=== PATIENT | male | born 1955 ===

== ENCOUNTER 2020-02-21 18:12 | Outpatient (REF) | payer MEDICAID, SELFPAY ==
[2020-02-21 21:30] LABS: Abs Immature Grans 0.02 10^3/uL (0.0-0.06); Absolute Basophil Count 0.05 10^3/uL (0.0-0.2); Absolute Eosinophil Count 0.11 10^3/uL (0.0-0.7); Absolute Monocyte Count 0.73 10^3/uL (0.1-0.8); Absolute Neutrophil Count 4.97 10^3/uL (1.2-6.7); Basophils % 0.7; Eosinophils % 1.6; HCT 50.6 % (40.0-50.0); HGB 17.8 g/dL (13.5-17.5); Immature Grans % 0.3; Lymphocytes % 16.9; MCH 35.3 pg (27.0-33.0); MCHC 35.2 % (32.0-36.0); MCV 100.4 fL (80-95); MPV 10.1 fL (8.0-11.0); Monocytes % 10.3; Neutrophils % 70.2; Nucleated RBC 0 %; Platelet Count 222 10^3/uL (130-400); RBC 5.04 10^6/uL (4.36-5.78); RDW 11.9 % (11.8-14.1); RDW-SD 44.9 fL; WBC 7.08 10^3/uL (4.4-10.8)
[2020-02-21 21:59] LABS: ALT 37 U/L (16-63); AST 27 U/L (15-37); Albumin 4.1 g/dL (3.4-5.0); Alkaline Phosphatase 100 U/L (46-116); Anion Gap 6.5 mmol/L (3-11); BUN 4 mg/dL (7-18); Bilirubin, Total 0.6 mg/dL (0.2-1.0); CO2 28.5 mmol/L (21.0-32.0); CREATININE 0.72 mg/dL (0.70-1.30); Calcium 8.8 mg/dL (8.5-10.1); Calculated LDL 97 mg/dL (<100); Chloride 95 mmol/L (98-107); Cholesterol 191 mg/dL (<200); Glucose 107 mg/dL (74-106); HDL Cholesterol 53 mg/dL (40-60); Potassium 4.5 mmol/L (3.5-5.1); Sodium 130 mmol/L (136-145); Total Protein 6.8 g/dL (6.4-8.2); Triglyceride 205 mg/dL (<150)
[2020-02-21 22:56] LABS: Lipase 95 U/L (73-393)
== END 2020-02-21 18:32 ==
LOC: NCHCN 18:12
PROVIDERS: PCP Nurse Practitioner Family; Visit Provider Nurse Practitioner Family
DX: I10 Essential (primary) hypertension (principal); K92.1 Melena; R19.7 Diarrhea, unspecified; F17.200 Nicotine dependence, unspecified, uncomplicated; M54.89 Other dorsalgia
CPT/HCPCS: 80053; 80061; 83690; 85025

== ENCOUNTER 2020-03-12 01:32 | Outpatient (CLI) | payer MEDICAID, SELFPAY ==
--- NOTE | 2020-03-12 | DI.CTLCSR_ITS ---
EXAM: CT CHEST LUNG CANCER SCREEN CLINICAL HISTORY: SCREENING FOR LUNG CA, CURRENT SMOKER, F17.200, RML PULMONARY NODULE, R91.1 TECHNIQUE: Imaging Protocol: Axial computed tomography images with coronal and sagittal reformatted images were created and reviewed COMPARISON: No exams were available for comparison FINDINGS: Tracheobronchial tree: Patent where visualized. Mediastinum and C[place]: No dominant adenopathy or fluid collection. Pulmonary parenchyma: No consolidation or dominant measurable mass. Mild to moderate centrilobular em physema greater in the upper lobes. Lung Nodules: Few tiny calcifications posterior right lower lobe. No noncalcified nodules. Pleura: No effusion or pneumothorax. Heart: The heart is not dilated. Moderate coronary artery calcifications are seen. Aorta: Thoracic aorta non-dilated. Moderate atherosclerotic changes. Upper abdomen: Cyst left kidney. Bones: Mild degenerative disc changes. Soft Tissues: Unremarkable. IMPRESSION: [id number] centrilobular emphysema. No suspicious pulmonary nodules. Category Lung RADS Cat 1 - Negative: No nodules and definitely benign nodules Lung-RADS 1.0 CATEGORIES: Category 0 - Prior chest CT exam(s) being located for comparison. Category 1 - Annual screening in 12 months. No nodules or definitely benign nodules. Category 2 - Annual screening in 12 months. Benign appearance. Nodules with low likelihood of becomin g active cancer. Category 3 - 6-month follow-up. Probably benign. Short-term follow-up suggested. Nodules with low lik elihood of becoming active cancer. Category 4A - 3-month follow-up and CT/PET if >8 mm in size. Suspicious finding. Findings which requi re additional testing. Category 4B - Findings which require additional testing and tissue sampling. Suspicious finding. C Added to Any of the Above - History of prior lung cancer screening. S Added to Any of the Above - Significant unexpected other finding. RADIATION DOSE DELIVERED: 85.54mGy.cm Total DLP DATA REPOSITORY: All CT scans at this facility are submitted to the National Radiology Data Registry (NRDR) Dose Index Registry (DIR) with the [employer] ([employer]). RADIATION OPTIMIZATION: All CT scans at this facility use at least one of these dose optimization te chniques: automated exposure control; mA and/or kV adjustment per patient size (includes targeted exa ms where dose is matched to clinical indication); or iterative reconstruction.
== END 2020-03-12 01:52 ==
PROVIDERS: PCP Nurse Practitioner Family; Visit Provider Nurse Practitioner Family
DX: F17.210 Nicotine dependence, cigarettes, uncomplicated (principal); J43.2 Centrilobular emphysema
CPT/HCPCS: 71271